=== PATIENT | female | born 1995 | race Caucasian/White ===

== ENCOUNTER 2018-11-20 11:25 | Emergency (ER) | payer OTHER ==
[~2018-11-20] VITALS: Ht 167.6 cm; Wt 73.0 kg
== END 2018-11-20 15:47 | disposition home or self-care (01) ==
LOC: ER 11:25
DX: K52.9 Noninfective gastroenteritis and colitis, unspecified (principal)

== ENCOUNTER 2018-12-15 04:13 | Emergency (ER) | payer OTHER ==
[~2018-12-15] VITALS: Ht 165.1 cm; Wt 72.1 kg
== END 2018-12-15 09:25 | disposition home or self-care (01) ==
LOC: ER 04:13
DX: R42 Dizziness and giddiness (principal); F10.121 Alcohol abuse with intoxication delirium